=== PATIENT | female | born 1995 | race Caucasian/White ===

== ENCOUNTER 2017-12-26 14:06 | Emergency (ER) | payer OTHER ==
[~2017-12-26] VITALS: Ht 160 cm; Wt 80.7 kg
[2017-12-26 14:21] VITALS: BP 123/77
--- NOTE | 2017-12-26 14:26 | ED HEADACHE COMPLAINT ---
History of Present Illness General Chief Complaint: Headache Stated Complaint: PAGE Source: patient Exam Limitations: no limitations Vital Signs & Intake/Output Vital Signs & Intake/Output Vital Signs Date Time Temp Pulse Resp B/P B/P Pulse O2 O2 Flow FiO2 Mean Ox Delivery Rate 12/26 1421 98.5 108 20 123/77 99 Room Air Allergies Coded Allergies: No Known Allergies (12/26/17) Reconcile Medications Butalb/Acetaminophen/Caffeine (Nlhdrb-Dtnwgamj-Xzme 50-325-40) 50 MG-325 MG-40 MG TABLET 1 TAB PO DAILY headache Triage Note: PT TO ED C/O HEADACHE SINCE LAST NIGHT. STATES SHE TOOK A PRESCRIBED TRAZADONE FOR THE FIRST TIME AND THE H/A STARTED AFTER THAT. STATES NAUSEA LAST NIGHT, NONE NOW. STATES SLIGHT LIGHT SENSITVITY. Triage Nurses Notes Reviewed? yes Onset: Abrupt Duration: day(s): (LAST NIGHT) Timing: recent history Quality/Severity: moderate No Modifying Factors: none : No Patient currently breastfeeds: No HPI: 22-year-old female comes into the emergency room for further evaluation of headache since last night. Patient reports that she is on psychiatric medications. She reports that she was started on a new medication called trazodone last night to help with sleep. She reports she woke up in the middle night with a headache and headaches been persistent since. She woke up multiple times. It was more of a gradual headache and not sudden onset. Mild light sensitivity and noise sensitivity. Denies any fever chills vomiting neck pain. Comes in for further evaluation. (Jackson Franz) Past History Travel History Traveled to [place] past 21 day No Medical History Any Pertinent Medical History? see below for history Psychiatric: depression Surgical History Surgical History: non-contributory Psychosocial History What is your primary language Icelandic Tobacco Use: Never used ETOH Use: denies use Illicit Drug Use: denies illicit drug use Family History Hx Contributory? No (Jackson Franz) Review of Systems Review of Systems Constitutional: Reports: no symptoms. Eyes: Reports: no symptoms. Ears, Nose, Throat, Mouth: Reports: no symptoms. Respiratory: Reports: no symptoms. Cardiovascular: Reports: no symptoms. Gastrointestinal/Abdominal: Reports: no symptoms. Genitourinary: Reports: no symptoms. Musculoskeletal: Reports: no symptoms. Skin: Reports: no symptoms. Neurological/Psychological: Reports: see HPI. Hematologic/Endocrine: Reports: no symptoms. Endocrine: Reports: no symptoms. Immunologic/Allergic: Reports: no symptoms. All Other Systems: Reviewed and Negative (Jackson Franz) Physical Exam Physical Exam General Appearance: well developed/nourished, alert, awake Head: atraumatic, normal appearance Eyes: Bilateral: normal appearance, PERRL, EOMI. Ears, Nose, Throat: normal ENT inspection, hearing grossly normal Neck: normal inspection Respiratory: normal breath sounds, no respiratory distress Cardiovascular: regular rate/rhythm Psychiatric: awake, alert, oriented x 3 Cranial Nerves: normal hearing, normal speech, PERRL Coordination/Gait: normal gait Motor/Sensory: no motor/sensory deficits Skin: intact Core Measures Sepsis Present: No Sepsis Focused Exam Completed? No (Jackson Franz) Progress Differential Diagnosis: carotid dissection, cav sinus thromb, cluster PAGE, encephalitis, IC mass/tumor, intracranial Hem., meningitis, migraine PAGE, musculoskeletal pain, sinusitis, SSS thrombosis, subarach. Hem., tension PAGE, temporal arteritis, TMJ syndrome, viral cephalgia, MEDICATION SIDE EFFECT Plan of Care: Orders Procedure Date/time Status URINE 12/26 1425 Complete Laboratory Tests 12/26/17 1452: Urine Test NEGATIVE Comments: 12/26/2017 3:43:08 PM Patient reports a 90% improvement in her headache. She clinically looks well. She is in no apparent distress. Neurologically intact. Likely medication side effect. No suspicion for subarachnoid at this time. Follow-up with PCP. Return if any other concerns worsening symptoms. Understands and agrees with plan of care. (Jackson Franz) Departure Departure Disposition: HOME OR SELF CARE Condition: Stable Clinical Impression Primary Impression: Medication side effect Secondary Impressions: Headache Additional Instructions: Take Fioricet as prescribed. Follow up with primary care doctor. Discontinue taking trazodone. Please go over all results of today's visit with your primary care doctor. Contact your primary care doctor to let them know you were here in the emergency room. There may be nonspecific findings which may not be related to your visit today here in the emergency room but may require further evaluation and chronic monitoring by your primary care doctor. If you had a laceration today the chance of foreign body always remains. You should follow-up with your primary care doctor for recheck in 3-5 days for a wound check. If you had an x-ray done there is a chance that a fracture could have been missed on initial read and you should follow-up with your primary care doctor for repeat x-rays if symptoms persist. If your blood pressure was elevated here in the emergency room please have rechecked by our primary care doctor within the next 48. If you were prescribed a narcotic here in the emergency room or any type of controlled substances you're not allowed to drive while taking this medication or operate any type of heavy machinery. Narcotics can make you feel lightheaded dizziness nausea and can cause constipation. You may need to sisal picker a stool softener. Thank you for choosing [facility] emergency room. Please return to the emergency room immediately if you have any other concerns worsening of symptoms. Departure Forms: Customer Survey General Discharge Information Prescriptions: Current Visit Scripts Butalb/Acetaminophen/Caffeine (Jrfyxw-Rtzsjdcg-Dqyc 50-325-40) 1 TAB PO DAILY #30 TAB (Jackson Franz) PA/HANDCREW FOREMAN Co-Sign Statement Statement: ED Attending supervision documentation- [] I saw and evaluated the patient. I have also reviewed all the pertinent lab results and diagnostic results. I agree with the findings and the plan of care as documented in the PA's/HANDCREW FOREMAN's documentation. [X] I have reviewed the ED Record and agree with the PA's/HANDCREW FOREMAN's documentation. [] Additions or exceptions (if any) to the PAs/HANDCREW FOREMAN's note and plan are summarized below: [] (Mali GRAY,Guille Hudson)
[2017-12-26] MEDS ORDERED: BUTALB-ACETAMI1 EACH PO (15:38)
== END 2017-12-26 15:44 ==
LOC: ERH 14:06
DX: T43.215A Adverse effect of selective serotonin and norepinephrine reuptake inhibitors, initial encounter (principal); R51 Headache
CPT/HCPCS: 81025; 96372; J1885